=== PATIENT | female | born 1990 | race Caucasian/White ===

== ENCOUNTER 2019-05-25 10:14 | Day surgery (SDC) | payer OTHER ==
[2019-05-25] MEDS ORDERED: ONDANSETRON 4 MG/2 ML VIAL IVP ONE (10:15)
[2019-05-25] MEDS ORDERED: PROPOFOL 200 MG/20 ML VIAL IVP ONE (10:15)
[2019-05-25] MEDS ORDERED: LIDOCAINE-MPF 2% 5 ML VIAL IM ONE (10:15)
[2019-05-25] MEDS ORDERED: fentaNYL 100 MCG/2 ML VIAL IVP ONE (10:15)
[2019-05-25] MEDS ORDERED: MIDAZOLAM 2 MG/2 ML VIAL IVP ONE (10:15)
[2019-05-25] MEDS ORDERED: LACTATED RINGERS 1,000 ML IV ONE (10:30)
[2019-05-25 10:39] LABS: HCG UR QUAL NEGATIVE
--- NOTE | 2019-05-25 11:30 | ANESTHESIA ---
Pre-Anesthesia VS, & Labs - Diagnosis Left labia mass - Procedure Excise left labia mass Vital Signs: Temp Pulse Resp BP Pulse Ox 36.1 C L 81 16 116/72 100 05/25/19 10:26 05/25/19 10:26 05/25/19 10:26 05/25/19 10:26 05/25/19 10:26 Height 5 ft 8 in Weight (kg) 77.1 kg - NPO >8 hours, Other (4 oz black coffee at 0830) - Is Patient ?: No Home Medications and Allergies Home Medications: Ambulatory Orders Multivitamin [One Daily Multivitamin] 1 each PO 05/13/19 Multivitamin [One Daily Multivitamin] 1 each PO 05/13/19 Allergies/Adverse Reactions: Allergies Allergy/AdvReac Type Severity Reaction Status Date / Time cephalexin Allergy Hives Verified 05/13/19 09:43 walnut Allergy Hives Verified 05/13/19 09:43 Anes History & Medical History - Anesthetic History Anesthesia Complications: reports: No previous complications Family history of Anesthesia Complications: Denies Family history of Malignant Hyperthermia: Denies - Medical History Cardiovascular: reports: None, Hypertension Pulmonary: reports: None Gastrointestinal: reports: None Urinary: reports: Other Neuro: reports: None Musculoskeletal: reports: None Endocrine/Autoimmune: reports: None Blood Disorders: reports: None Skin: reports: None Smoking Status: Never smoker Psychosocial: reports: No issues indicated Exam General: Alert, Oriented x3, Cooperative Dental: TMJ Mouth Opening: Greater than 4 Fingerbreadths Neck Mobility: Normal Mallampati classification: I Thyromental Distance: greater than 6 cm Respiratory: Lungs clear Cardiovascular: Regular rate Neurological: Normal speech Cognitive Status: Within normal limits Plan Anesthesia Type: IV Regional Consent for Procedure(s) Verified and Reviewed: Yes Code Status: Attempt Resuscitation ASA classification: 1-Healthy patient Is this case an emergency?: No
[2019-05-25] MEDS ORDERED: LIDOCAINE-MPF 1% 30 ML VIAL ONE (11:39)
[2019-05-25] MEDS ORDERED: LIDOCAINE 1% 50 ML MDV SUBQ ONE (12:41)
[2019-05-25] MEDS ORDERED: HYDROmorphone 0.5 MG/0.5 ML SYRINGE IVP PRN (12:57)
[2019-05-25] MEDS ORDERED: oxyCODONE 5 MG TABLET PO PRN (12:57)
[2019-05-25] MEDS ORDERED: ONDANSETRON 4 MG/2 ML VIAL IVP PRN (12:57)
--- NOTE | 2019-05-25 13:00 | OPERATIVE REPORT ---
Operative Report - General Procedure Date: 05/25/19 Planned Procedure: excision of vulvar mass Pre-Op Diagnosis: left labia mass Procedure Performed: incision and drainage, vulvar cyst Post Op Diagnosis: left labia majora vulva cyst - Procedure Note Primary Surgeon: Hao Bahena Anesthesia Provider: Ezio Eller Anesthesia Technique: Local, [facility] [place]: cultures of vulvar cyst, aerobic and anaerobic IV Fluids (mL): 500 Estimated Blood Loss (mL): 10 Urine Output (mL): 0 Indications: left labia majora mass; u/s suggestive of lipoma Findings: left labia majora mass, firm non-fluctuant area at 2 o'clock approximately 2 cm lateral to clitoris. On incision to <0.5 cm returned small amount of purulent white fluid, no odor. Cultured. Exploration revealed no significant cyst wall to be excised. Closed with two deep dermal sutures and running subcuticular suture. Complications: none - Other Other Information/Narrative: After informed consent was assured and patient re-examined to confirm laterality of procedure, proceeded to OR with IV fluids running. Monitored anesthesia care was initiated. Pt was prepped and draped in a sterile fashion. A surgical timeout was performed. The skin overlying the mass was infiltrated with 1% lidocaine plain. A vertical incision was made over the length of the palpable mass and carried through the sucutaneous tissue sharply. At a depth of <0.5 cm, thick white fluid noted to be expressed through incision; cultures were taken to be sent to the lab. Explora tion of the cavity revealed no further palpable fluid collection or abnormal tissue; no cyst wall was visualized. All bleeding points in the dissection bed were cauterized. Two deep dermal sutures were placed with 0 vicryl. A running subcuticular suture of 4-0 monocryl was placed. Good hemostasis and cosmesis at conclusion. A sterile gauze and tegaderm were placed over the incision. The patient was awoken from anesthesia. Sponge and instrument counts were correct. The patient returned to PACU in stable condition. No complications were appreciated.
[2019-05-25 13:26] VITALS: BP 107/84
== END 2019-05-25 10:15 | disposition home or self-care (01) ==
LOC: SDS 10:14
PROVIDERS: ATTEND Obstetrics & Gynecology
PROC: 0U9MXZZ Drainage of Vulva, External Approach (ICD-10-PCS; principal; 2019-05-25 11:30)
DX: N90.7 Vulvar cyst (principal)
CPT/HCPCS: 81025; 87070; 87205